=== PATIENT | female | born 1950 | race Two or more races ===

== ENCOUNTER 2018-01-30 10:01 | Outpatient (CLI) | payer OTHER | END 2018-01-30 10:28 | disposition home or self-care (01) | LOC: RAD 501 10:01 | DX: M54.5 Low back pain (principal) ==

== ENCOUNTER 2018-04-12 09:33 | Outpatient (CLI) | payer OTHER | END 2018-04-12 09:47 | disposition home or self-care (01) | LOC: LAB 09:33 | DX: I10 Essential (primary) hypertension (principal); E11.9 Type 2 diabetes mellitus without complications; E03.8 Other specified hypothyroidism; E78.2 Mixed hyperlipidemia; K92.1 Melena; D64.0 Hereditary sideroblastic anemia; K70.30 Alcoholic cirrhosis of liver without ascites; M81.0 Age-related osteoporosis without current pathological fracture ==

== ENCOUNTER 2018-07-10 10:33 | Outpatient (CLI) | payer OTHER | END 2018-07-10 15:39 | disposition home or self-care (01) | LOC: RAD 10:33 | DX: M19.90 Unspecified osteoarthritis, unspecified site (principal) ==

== ENCOUNTER 2018-07-13 17:26 | Emergency (ER) | payer OTHER ==
[~2018-07-13] VITALS: Ht 152.4 cm; Wt 61.7 kg
[2018-07-13] MEDS ORDERED: GLIPIZIDE ER2.5 MG (17:34)
[2018-07-13] MEDS ORDERED: COZAAR25 MG (17:34)
[2018-07-13] MEDS ORDERED: ENULOSE10 GM/15 M (17:34)
[2018-07-13] MEDS ORDERED: [UNRECOGNIZED DRUG - OTHER] (17:34)
[2018-07-13] MEDS ORDERED: FA-80.8 MG (17:34)
[2018-07-13] MEDS ORDERED: MULTI VITAMIN1 EACH (17:35)
[2018-07-13] MEDS ORDERED: RESTORA CAPSUL1 EACH (17:35)
[2018-07-13] MEDS ORDERED: SYNTHROID50 MCG (17:35)
[2018-07-13] MEDS ORDERED: TRADJENTA5 MG (17:35)
== END 2018-07-13 20:03 | disposition home or self-care (01) ==
LOC: ER 17:26
DX: J11.1 Influenza due to unidentified influenza virus with other respiratory manifestations (principal); B34.9 Viral infection, unspecified; K74.69 Other cirrhosis of liver; N39.0 Urinary tract infection, site not specified; D69.49 Other primary thrombocytopenia; R05 Cough; R53.81 Other malaise; R53.1 Weakness

== ENCOUNTER → 2018-08-31 | Emergency (ER) | payer OTHER ==
[~2018-08-31] VITALS: Ht 149.9 cm; Wt 68.0 kg
[~2018-08-31] MED LIST: COZAAR25 MG; ENULOSE10 GM/15 M; FA-80.8 MG; GLIPIZIDE ER2.5 MG; MILK THISTLE150 MG; MULTI VITAMIN1 EACH; RESTORA CAPSUL1 EACH; SYNTHROID50 MCG; TRADJENTA5 MG; [UNRECOGNIZED DRUG - OTHER]
== END | disposition home or self-care (01) ==
LOC: ER 13:01
DX: M25.562 Pain in left knee (principal); M79.605 Pain in left leg

== ENCOUNTER 2018-10-01 10:17 | Outpatient (CLI) | payer OTHER | END 2018-10-01 10:23 | disposition home or self-care (01) | LOC: RAD 10:17 | DX: M25.561 Pain in right knee (principal); M54.5 Low back pain; M25.572 Pain in left ankle and joints of left foot; M25.562 Pain in left knee ==

== ENCOUNTER 2018-10-04 07:01 | Outpatient (CLI) | payer OTHER | END 2018-10-04 07:10 | disposition home or self-care (01) | LOC: LAB 07:01 | DX: E03.8 Other specified hypothyroidism (principal); I10 Essential (primary) hypertension; E11.9 Type 2 diabetes mellitus without complications; E78.2 Mixed hyperlipidemia ==

== ENCOUNTER → 2018-11-08 | Outpatient (CLI) | payer OTHER | END | disposition home or self-care (01) | LOC: MRI 12:15 | DX: M25.562 Pain in left knee (principal) | CPT/HCPCS: 73721 ==

== ENCOUNTER 2018-11-18 06:20 | Outpatient (CLI) | payer OTHER | END 2018-11-18 06:29 | disposition home or self-care (01) | LOC: LAB 06:20 | DX: D68.8 Other specified coagulation defects (principal); E78.2 Mixed hyperlipidemia; N39.0 Urinary tract infection, site not specified; R07.89 Other chest pain; Z01.818 Encounter for other preprocedural examination; I10 Essential (primary) hypertension ==

== ENCOUNTER 2019-01-08 07:23 | Outpatient (CLI) | payer OTHER | END 2019-01-08 07:32 | disposition home or self-care (01) | LOC: LAB 07:23 | DX: E03.8 Other specified hypothyroidism (principal); I10 Essential (primary) hypertension; E11.9 Type 2 diabetes mellitus without complications; E78.2 Mixed hyperlipidemia; K70.30 Alcoholic cirrhosis of liver without ascites ==

== ENCOUNTER 2019-04-07 07:32 | Outpatient (CLI) | payer OTHER | END 2019-04-07 07:40 | disposition home or self-care (01) | LOC: LAB 07:32 | DX: B18.2 Chronic viral hepatitis C (principal); R16.0 Hepatomegaly, not elsewhere classified ==

== ENCOUNTER 2019-04-08 07:59 | Outpatient (CLI) | payer OTHER | END 2019-04-08 15:00 | disposition home or self-care (01) | LOC: LAB 07:59 | DX: R16.0 Hepatomegaly, not elsewhere classified (principal) ==

== ENCOUNTER 2019-04-22 06:47 | Outpatient (CLI) | payer OTHER | END 2019-04-22 06:51 | disposition home or self-care (01) | LOC: LAB 06:47 | DX: K76.0 Fatty (change of) liver, not elsewhere classified (principal) ==

== ENCOUNTER 2019-04-22 07:41 | Outpatient (CLI) | payer OTHER | END 2019-04-22 07:48 | disposition home or self-care (01) | LOC: SONOGRAMA 07:41 → MAMO-SONO 08:45 | DX: R10.84 Generalized abdominal pain (principal) ==

== ENCOUNTER 2019-04-29 07:01 | Outpatient (CLI) | payer OTHER | END 2019-04-29 07:19 | disposition home or self-care (01) | LOC: LAB 07:01 | DX: E11.9 Type 2 diabetes mellitus without complications (principal); E03.8 Other specified hypothyroidism; I10 Essential (primary) hypertension; E78.2 Mixed hyperlipidemia; K70.30 Alcoholic cirrhosis of liver without ascites ==

== ENCOUNTER 2019-05-06 08:48 | Outpatient (CLI) | payer OTHER | END 2019-05-06 09:05 | disposition home or self-care (01) | LOC: RAD 08:48 | DX: M46.47 Discitis, unspecified, lumbosacral region (principal) ==

== ENCOUNTER → 2019-08-14 07:00 | Outpatient (CLI) | payer OTHER | END | disposition home or self-care (01) | LOC: LAB 07:00 | PROVIDERS: ATTEND Internal Medicine Cardiovascular Disease | DX: I10 Essential (primary) hypertension (principal); E11.9 Type 2 diabetes mellitus without complications; E03.8 Other specified hypothyroidism; E78.2 Mixed hyperlipidemia ==

== ENCOUNTER 2019-08-19 08:50 | Outpatient (CLI) | payer OTHER | END 2019-08-19 08:58 | disposition home or self-care (01) | LOC: RAD 08:50 | PROVIDERS: ATTEND Internal Medicine Cardiovascular Disease | DX: M12.851 Other specific arthropathies, not elsewhere classified, right hip (principal); M46.47 Discitis, unspecified, lumbosacral region ==

== ENCOUNTER 2019-10-01 08:26 | Outpatient (CLI) | payer OTHER | END 2019-10-01 08:33 | disposition home or self-care (01) | LOC: TOM 08:26 | PROVIDERS: ATTEND Psychiatry & Neurology Clinical Neurophysiology | DX: R51 Headache (principal) ==

== ENCOUNTER 2019-11-13 07:59 | Emergency (ER) | payer OTHER ==
[~2019-11-13] VITALS: Ht 149.9 cm; Wt 64.9 kg
[2019-11-13] MEDS ORDERED: LEVOTHYROXINE100 MCG PO (08:10)
[2019-11-13] MEDS ORDERED: DONEPEZIL HCL5 MG PO (08:10)
[2019-11-13] MEDS ORDERED: TRIAMCINOLONE AC5 GM DT (08:12)
[2019-11-13] MEDS ORDERED: KRISTALOSE10 GM PO (08:12)
== END 2019-11-13 10:42 | disposition home or self-care (01) ==
LOC: ER 07:59
DX: H57.12 Ocular pain, left eye (principal)

== ENCOUNTER 2019-11-27 07:22 | Outpatient (CLI) | payer OTHER ==
[~2019-11-27 07:22] MED LIST changes: +DONEPEZIL HCL5 MG PO; +KRISTALOSE10 GM PO; +LEVOTHYROXINE100 MCG PO; +TRIAMCINOLONE AC5 GM DT
== END 2019-11-27 07:38 | disposition home or self-care (01) ==
LOC: LAB 07:22
PROVIDERS: ATTEND Internal Medicine Cardiovascular Disease
DX: E03.8 Other specified hypothyroidism (principal); I10 Essential (primary) hypertension; E11.9 Type 2 diabetes mellitus without complications; E78.2 Mixed hyperlipidemia

== ENCOUNTER → 2020-01-20 07:44 | Outpatient (CLI) | payer OTHER | END | disposition home or self-care (01) | LOC: LAB 07:44 | PROVIDERS: ATTEND Internal Medicine Cardiovascular Disease | DX: Z12.11 Encounter for screening for malignant neoplasm of colon (principal) ==

== ENCOUNTER 2020-04-02 08:02 | Outpatient (CLI) | payer OTHER | END 2020-04-02 15:00 | disposition home or self-care (01) | LOC: LAB 08:02 | PROVIDERS: ATTEND Internal Medicine Cardiovascular Disease | DX: E03.8 Other specified hypothyroidism (principal); I10 Essential (primary) hypertension; E11.9 Type 2 diabetes mellitus without complications; E78.2 Mixed hyperlipidemia; E55.9 Vitamin D deficiency, unspecified; K70.30 Alcoholic cirrhosis of liver without ascites ==

== ENCOUNTER → 2021-07-14 08:03 | Outpatient (CLI) | payer OTHER | END | disposition home or self-care (01) | LOC: LAB 08:03 | PROVIDERS: ATTEND Internal Medicine Cardiovascular Disease | DX: E03.9 Hypothyroidism, unspecified (principal); I10 Essential (primary) hypertension; E11.9 Type 2 diabetes mellitus without complications; E78.2 Mixed hyperlipidemia; Z12.11 Encounter for screening for malignant neoplasm of colon; E55.9 Vitamin D deficiency, unspecified ==

== ENCOUNTER 2021-12-16 08:24 | Outpatient (CLI) | payer OTHER | END 2021-12-16 08:31 | disposition home or self-care (01) | LOC: LAB 08:24 | PROVIDERS: ATTEND Internal Medicine Cardiovascular Disease | DX: I10 Essential (primary) hypertension (principal); E11.9 Type 2 diabetes mellitus without complications; E03.9 Hypothyroidism, unspecified; E78.2 Mixed hyperlipidemia ==